=== PATIENT | male | born 1995 | race Caucasian/White ===

== ENCOUNTER 2017-10-22 19:17 | Inpatient (IN) | payer MEDICAID ==
[~2017-10-22] VITALS: Ht 172.7 cm; Wt 58.2 kg
--- NOTE | 2017-10-22 19:43 | NUR ---
PT BIBA WITH [place] [employer] IN 4 POINT RESTRAINTS. PER EMS STAFF AND PD, WHEN PT WAS TOLD HE WAS BEING PLACED ON 5150 HOLD AND TAKEN TO ED FOR SI PT BECAME COMBATIVE. PTS FAMILY REPORTS DECREASED PO APPETITE, RECENT DEPRESSION AND ANXIETY WITH NEW ATIVAN RX, AND LETHARGY. PTS FAMILY REPORTS PT HAS BEEN REPORTING THOUGHTS OF HARMING SELF. DURING ASSESSMENT PT RPEORTS HEARING VOICES AND SEEING THINGS THAT ARE NOT THERE. PT CONNECTED TO FULL CARDIORESP MONITORS. PT SWEARING AND BECOMING UNCOOPERATIVE TOWARD THE END OF ASSESSMENT CALLING STAFF "BITCHES" FOR NOT TAKING RESTRAINTS OFF. DR GARCIA AWARE AND AT BEDSIDE FOR MSE. PT PLACED IN FULL VIEW OF NURSING STAFF, PT REMAINS IN 4 POINT RESTRAINTS FOR SAFETY OF PATIENT AND STAFF.
--- NOTE | 2017-10-22 19:54 | NUR ---
PT TEARFUL AT THIS TIME. STATES "WHY AM I HERE?" WHEN I TOLD PT IT WAS BECAUSE HIS FAMILY WAS WORRIED ABOUT HIM PT STATED, "THEY DON'T CARE, NO ONE CARES."
[2017-10-22 20:11] LABS: BASOPHIL % 1.2 % (0-2); PLATELET COUNT 318 x10^3mcL (130-400); RED CELL DISTRIBUTION WIDTH 12.8 % (11.5-14.5)
[2017-10-22 20:34] LABS: CARBON DIOXIDE 29.7 mmol/L (21-32); CHLORIDE SERUM 105 mmol/L (98-107); CREATININE SERUM 0.9 mg/dL (0.7-1.3); GFR1 > 60 mL/min; GLUCOSE SERUM 88 mg/dL (74-106); POTASSIUM SERUM 3.7 mmol/L (3.5-5.1); SODIUM SERUM 141 mmol/L (136-145)
[2017-10-22 20:38] LABS: ALBUMIN 3.6 g/dL (3.4-5.0); ALKALINE PHOSPHATASE 69 U/L (46-116); ALT/SGPT 17 U/L (16-63); AST/SGOT 14 U/L (15-37); BILIRUBIN TOTAL 0.8 mg/dL (0.20-1.00); FREE T4 0.81 ng/dL (0.76-1.46); TOTAL PROTEIN, SERUM 7.3 g/dL (6.4-8.2)
--- NOTE | 2017-10-22 22:31 | NUR ---
PT RESTING IN A POSITION OF COMFORT, 4 PO[address] RESTRAINTS STILL IN PLACE. PMSC'S INTACT IN ALL FOUR EXTREMETIES. PT DENIES PAIN, ROM PERFORMED. WILL ASSESS RESTRAINT REMOVAL.
--- NOTE | 2017-10-22 23:21 | NUR ---
TRIALING RESTRAINT REMOVAL, EDUCATED PT ON TRIAL PROCESS, LEFT WRIST RESTRAINT REMOVED.
--- NOTE | 2017-10-23 00:53 | NUR ---
REMOVED LLE RESTRAINT. RE-EDUCATED PATIENT ON RESTRAINT REMOVAL AND THAT IF HE BECOMES VIOLENT AGAIN FOR HIS SAFETY, AND SAFETY OF STAFF, WILL WE PUT THE RESTRAINTS BACK ON. PT VERBALIZED UNDERSTANDING.
--- NOTE | 2017-10-23 01:32 | NUR ---
REMOVED PT RLE RESTRAINT, RE-EDUCATED PT ON RESTRAINTS AND REMINDED PT THAT IF HE BECAME VIOLENT OR TRIED TO HARM HIMSELF THE RESTRAINTS WOULD GO BACK ON.L PT VERBALIZED UNDERSTANDING.
--- NOTE | 2017-10-23 03:00 | NUR ---
FINAL RESTRAINT, RIGHT UPPER EXTREMETY, REMOVED. REMINDED AND RE-EDUCATED PT THAT IF HE BECOMES VIOLENT AGAIN, FOR PTS SAFETY THEY CAN BE PUT BACK ON. PT VERBALIZED UNDERSTANDING.
[2017-10-23 06:09] LABS: microscopic required? NO
[2017-10-23 06:38] LABS: UA SPECIFIC GRAVITY 1.025 (1.005-1.035); urine erythrocyte NEGATIVE (NEGATIVE)
[2017-10-23 06:46] LABS: AMPHETAMINE QUAL UR POSITIVE (NEG <=1000)
--- NOTE | 2017-10-23 07:09 | NUR ---
UPON ENTERING PTS ROOM PT IS SLEEPING, RESPIRATIONS ARE EVEN AND UNLABORED, +CHEST RISE AND FALL NOTED. PT ON FULL CM, PT IS NOT IN RESTRAINTS AT THIS TIME. PT IN VIEW OF NURSES STATION, WILL CONTINUE TO MONITOR PT.
--- NOTE | 2017-10-23 07:25 | NUR ---
REPORT GIVEN TO AND CARE ENDORSED TO BRIGITTE ESQUIVEL TO ASSUME CARE OF PT.
--- NOTE | 2017-10-23 07:39 | NUR ---
PT OFFERED BREAKFEST TRAY. PT STATED THAT HE WILL WAIT.
--- NOTE | 2017-10-23 08:12 | NUR ---
DR MAK AT BEDSIDE TO EVAL PT.
--- NOTE | 2017-10-23 08:35 | NUR ---
PT OFFERED AM CARE, REFUSED AT THIS TIME.
--- NOTE | 2017-10-23 09:03 | NUR ---
FOOD TRAY AT BEDSIDE. OFFERED TO ASSIST. PT REFUSED. PT RESTING QUIETLY IN BED.
[2017-10-23 10:01] LABS: CHOLESTEROL/HDL RATIO 2.6; MAGNESIUM 2.1 mg/dL (1.8-2.4); PHOSPHOROUS 3.8 mg/dL (2.5-4.9)
--- NOTE | 2017-10-23 12:01 | NUR ---
PT OFFERED LUNCH, PT REFUSED AND SAID HE IS NOT HUNGRY, PT OFFERED CRACKERS OR JELLO, PT REFUSED BUT REQUESTED APPLE JUICE. PT SITTING UP IN BED DRINKING JUICE WITH NO DISTRESS. PT EDUCATED TO CALL ME IF HE NEEDS ANYTHING. PT VERBALIZED UNDERSTANDING OF TEACHING.
--- NOTE | 2017-10-23 13:07 | NUR ---
REPORT GIVEN TO HARPAL VOSS RN TO ASSUME CARE OF PT.
--- NOTE | 2017-10-23 13:10 | NUR ---
PATIENT SLEEPING, LOW SNORE. CHEST RISE EASY AND REGULAR. SKIN WITHIN NORMAL LIMITS.
--- NOTE | 2017-10-23 14:30 | NUR ---
PATIENT SLEEPING, SNORING QUIETLY. PATIENT CHEST RISE EASY AND UNLABORED.
--- NOTE | 2017-10-23 15:34 | NUR ---
PLEASE ENTER FULL NAMES OF STUDENT/RN Documentation completed by (Student Nurse):Moe SOLANO Documentation reviewed by (Registered Nurse): Anali VOSS
--- NOTE | 2017-10-23 16:13 | NUR ---
PATIENT SLEEPING. PATIENT WAS SNORING QUIETLY. CHEST RISE EASY AND UNLABORED.
--- NOTE | 2017-10-23 16:57 | NUR ---
PSYCHOSOCIAL CONSULT STAFF AT BEDSIDE FOR EVAL.
--- NOTE | 2017-10-23 17:19 | NUR ---
PT GIVEN CORDLESS PHONE AFTER REQUESTING TO MAKE A CALL.
--- NOTE | 2017-10-23 18:08 | NUR ---
SPOKE WITH PSYCHOLOGIST NAUN WHO PERFORMED EVAL OF PT. PT'S HOLD TO BE EXTENDED DUE TO FIRST 'PSYCHOTIC BREAK.' PSYCHOLOGIST RECOMMENDED PLACEMENT FOR PSYCH FACILITY OR INPATIENT PSYCH TREATMENT. PT STILL DENIES SUICIDAL IDEATION BUT APPEARS WITHDRAWN AND STILL HAVING AUD HALLUCINATIONS. ADMITTING STAFF TO SPEAK WITH PT REGARDING INSURANCE STATUS
--- NOTE | 2017-10-23 18:27 | NUR ---
ADMITTING WAS ABLE TO SPEAK WITH PT AT THIS TIME AND OBTAIN MORE REGISTRATION INFO
--- NOTE | 2017-10-23 19:16 | NUR ---
REPORT GIVEN TO CHRISTIANO ESQUIVEL.
--- NOTE | 2017-10-23 19:23 | NUR ---
RECIEVED REPORT FROM HARPAL RN TO ASSUME CARE OF PT. PT LAYING IN GURNEY, WITH MOTHER AT BEDSIDE. PT AWAKE AND ALERT, NO DISTRESS NOTED. PT IN VIEW OF NURSES STATION
--- NOTE | 2017-10-23 21:01 | NUR ---
PT ASLEEP IN [facility], EVEN RISE AND FALL OF CHEST NOTED
--- NOTE | 2017-10-23 21:16 | NUR ---
PT MEDICATED PER ORDERS
--- NOTE | 2017-10-23 22:41 | NUR ---
REPORT CALLED TO MATEUS TO ASSUME CARE OF PT. PT REFUSING IV AT THIS TIME
--- NOTE | 2017-10-23 23:00 | NUR ---
RECEIVED PT FROM ER VIA [facility] WITH NURSE AT BEDSIDE. PT WAS PLACED ON 5150 HOLD. 1:1 SITTER AT BEDSIDE FOR SAFETY. PT IS ORIENTED X4. SPEECH CLEAR. SLOW TO ANSWER, ANSWERS IN SHORT PHRASES. PLACED PT ON TELE 19 SHOWING NSR. DENIES CHEST PAIN. LUNG SOUNDS CLEAR. BREATHING EASILY ON ROOM AIR. BS ACTIVE. VOIDING FREELY. PT WITH NO IV ACCESS AT THIS TIME, WILL INSERT IV. SURU RN TO ADMIT PT AT THIS TIME. INSTRUCTED PT TO USE CALL LIGHT WHICH IS WITHIN REACH. WILL CARRY OUT ALL NEW ORDERS AT THIS TIME.
[2017-10-23 23:04] VITALS: BP 102/52
--- NOTE | 2017-10-23 23:08 | NUR ---
RECEIVED PT FROM ED VIA [facility]. TELE 19 PLACED ON PT READING SBR. INSTRUCTED PT ON THE USE OF CALL LIGHT FOR ASSISTANCE. ENDORSED PT TO PRIMARY NURSE MATEUS
--- NOTE | 2017-10-24 01:55 | NUR ---
PT APPEARS TO BE LYING IN BED WITH EYES CLOSED. 1:1 SITTER AT BEDSIDE FOR SAFETY. PT AGREES NOT TO HARM SELF, DENIES ANY SUICIDAL IDEATION. CALL LIGHT WITHIN REACH. WILL CONTINUE TO MONITOR CLOSELY.
[2017-10-24 06:05] VITALS: BP 99/60
--- NOTE | 2017-10-24 06:15 | NUR ---
PT SLEPT WELL ON AND OFF THROUGH OUT THE NIGHT. SITTER AT BEDSIDE FOR SAFETY. CALL LIGHT WITHIN REACH. BED IS IN LOWEST POSITION. WILL ENDORSE TO INCOMING SHIFT.
[2017-10-24 06:43] LABS: CARBON DIOXIDE 31.7 mmol/L (21-32); CHLORIDE SERUM 105 mmol/L (98-107); CREATININE SERUM 1.1 mg/dL (0.7-1.3); GFR1 > 60 mL/min; GLUCOSE SERUM 91 mg/dL (74-106); MAGNESIUM 2.1 mg/dL (1.8-2.4); PHOSPHOROUS 5.1 mg/dL (2.5-4.9); POTASSIUM SERUM 4.7 mmol/L (3.5-5.1); SODIUM SERUM 142 mmol/L (136-145)
[2017-10-24 06:55] LABS: BASOPHIL % 0.5 % (0-2); PLATELET COUNT 276 x10^3mcL (130-400)
--- NOTE | 2017-10-24 07:10 | NUR ---
RECEIVED PATIENT ASLEEP COVER W/ SITTER 1:1 FOR 5150 HOLD. WILL ASSESS WHEN PATIENT AWAKE FOR BREAKFAST. CALL LIGHT WITHIN REACH.
--- NOTE | 2017-10-24 08:51 | NUR ---
DR. CHARLIE Dominguez/ MEDICAL TEAM ROUND DISCUSS POC AND PLAN FOR PSYCH EVAL FOR PSYCHOTIC EPISODE.
--- NOTE | 2017-10-24 09:00 | NUR ---
PATIENT AWAKE, QUIET IN BED EATING AT THIS TIME, NO DISTRESS NOTED, DENIES PAIN. DUE MED GIVEN. SITTER REMAIN AT BEDSIDE TO CONT MONITOR.
[2017-10-24 09:37] VITALS: BP 113/67
--- NOTE | 2017-10-24 11:15 | NUR ---
PATIENT SLEEPING AT THIS TIME, NO DISTRESS NOTED. SITTER REMAIN AT BEDSIDE. CALL LIGHT WITHIN REACH.
[2017-10-24 12:45] VITALS: BP 105/51
--- NOTE | 2017-10-24 15:03 | NUR ---
PATIENT RESTING IN BED QUIET NO DISTRESS NOTED, SITTER REMAIN AT BEDSIDE; NEEDS ANTICIPATED.
--- NOTE | 2017-10-24 16:35 | NUR ---
PATIENT RESTING IN BED AWAKE/ALERT; NO DISTRESS NOTED. UPDATE PATIENT'S POC WITH MOTHER. NEEDS ANTICIPATED.
[2017-10-24 17:32] VITALS: BP 110/51
--- NOTE | 2017-10-24 17:58 | NUR ---
PATIENT RESTING IN BED NO COMPLAINT, TELE BOX REMOVED AND RETURN TO TELE ROOM. STILL AWAITING FOR PSYCH EVAL. SITTER 1:1 REMAIN AT BEDSIDE. CALL LIGHT WITHIN REACH.
--- NOTE | 2017-10-24 18:10 | NUR ---
PATIENT AWAKE IN BED DR. PAUL AT BEDSIDE INTERVIEW PATIENT FOR PSYCH EVAL; DR. BAGLEY WAS INFORM.
--- NOTE | 2017-10-24 18:36 | NUR ---
GLENNA CM PRESENT AT BEDSIDE GIVE PATIENT RESOURCES HANDOUT. PER GLENNA PATIENT IS CLEARED BY DR. PAUL.
--- NOTE | 2017-10-24 18:48 | NUR ---
DR. BAGLEY PRESENT AT BEDSIDE INFORM PATIENT WILL BE DISCHARGE TONIGHT.
[2017-10-24 20:09] VITALS: BP 110/51
--- NOTE | 2017-10-24 20:30 | NUR ---
RIGHT FA IV D/C INTACT. DISCHARGE PAPERS SIGNED BY PATIENT. VSS. ESCORTED DOWNSTAIRS VIA W/C BY BETITO LINARES. ALL BELONGINGS WITH PATIENT. FAMILY PRESENT.
== END 2017-10-24 20:31 | disposition home or self-care (01) | DRG 896 ==
LOC: ED 19:17 → DU 10-23 20:52
PROVIDERS: Emergency Medicine; ADMIT Family Medicine
DX: F15.159 Other stimulant abuse with stimulant-induced psychotic disorder, unspecified (principal); G92 Toxic encephalopathy; R45.851 Suicidal ideations; F41.9 Anxiety disorder, unspecified; T43.625A Adverse effect of amphetamines, initial encounter; F17.200 Nicotine dependence, unspecified, uncomplicated; Z53.29 Procedure and treatment not carried out because of patient's decision for other reasons; E83.39 Other disorders of phosphorus metabolism; Z79.899 Other long term (current) drug therapy; Z72.89 Other problems related to lifestyle; Z71.6 Tobacco abuse counseling; Y92.89 Other specified places as the place of occurrence of the external cause
CPT/HCPCS: 83880; 84439; G0480; J1200; J1630